=== PATIENT | female | born 1985 | race Caucasian/White ===

== ENCOUNTER 2017-10-28 09:10 | Emergency (ER) | payer BC ==
[2017-10-28 10:18] VITALS: BP 105/62
--- NOTE | 2017-10-28 10:40 | UC ---
Respiratory Complaint HPI - HPI Summary HPI Summary: 32 yo female with sinus congestion/runny nose and post nasal drip x 2 weeks frontal WORTHY no f/v upper teeth and gums sensitive - History of Current Complaint Chief Complaint: UCRespiratory Stated Complaint: SINUSES,ST,FEVER Time Seen by Provider: 10/28/17 10:01 Hx Obtained From: Patient Hx Last Menstrual Period: 10/25/17 Onset/Duration: Gradual Onset, Lasting Weeks Timing: Constant Severity Initially: Moderate Severity Currently: Moderate Pain Intensity: 5 Pain Scale Used: 0-10 Numeric Character: Cough: Nonproductive Associated Signs And Symptoms: Positive: Nasal Congestion, Hoarseness, Sinus Discomfort - Allergies/Home Medications Allergies/Adverse Reactions: Allergies Allergy/AdvReac Type Severity Reaction Status Date / Time No Known Allergies Allergy Verified 10/28/17 10:18 Home Medications: Home Medications [id number] [Tylenol Sinus Congestion 5-325-200 mg] 2 teasp PO PRN 10/28/17 [History] PMH/Surg Hx/FS Hx/Imm Hx Previously Healthy: Yes - Surgical History Surgical History: None - Family History Known Family History: Positive: Hypertension - father Negative: Cardiac Disease, Diabetes, Respiratory Disease - Social History Alcohol Use: Rare Substance Use Type: None Smoking Status (MU): Never Smoked Tobacco Review of Systems Constitutional: Fatigue Skin: Negative Eyes: Negative ENT: Dental Pain, Sore Throat, Ear Ache, Nasal Discharge, Sinus Congestion, Sinus Pain/Tenderness Respiratory: Cough Cardiovascular: Negative Gastrointestinal: Negative Genitourinary: Negative Motor: Negative Neurovascular: Negative Musculoskeletal: Negative Neurological: Headache Psychological: Negative Is Patient Immunocompromised?: No All Other Systems Reviewed And Are Negative: Yes Physical Exam Triage Information Reviewed: Yes Appearance: Well-Appearing, No Pain Distress, Well-Nourished Vital Signs: Initial Vital Signs Temp 97.8 F 10/28/17 10:10 Pulse 103 10/28/17 10:10 Resp 16 10/28/17 10:10 BP 105/62 10/28/17 10:10 Pulse Ox 99 10/28/17 10:10 Eye Exam: Normal Eyes: Positive: Conjunctiva Clear ENT: Positive: Normal ENT inspection, Nasal congestion, Nasal drainage, TMs normal, Hoarse voice, Sinus tenderness, Uvula midline. Negative: Trismus, Muffled voice Neck: Positive: Supple, Nontender, No Lymphadenopathy Respiratory: Positive: Lungs clear, Normal breath sounds, No respiratory distress Cardiovascular: Positive: RRR, No Murmur Musculoskeletal: Positive: ROM Intact, No Edema Neurological: Positive: Alert Psychological Exam: Normal Skin Exam: Normal UC Diagnostic Evaluation - Laboratory O2 Sat by Pulse Oximetry: 99 - normal/not hypoxic Respiratory Course/Dx - Differential Dx/Diagnosis Provider Diagnoses: acute sinusitis Discharge - Discharge Plan Condition: Stable Disposition: HOME Prescriptions: Amoxicillin PO (*) [Amoxicillin 875 MG (*)] 875 mg PO BID #20 tab Patient Education Materials: Sinusitis (ED) Referrals: No Primary Care Phys,NOPCP [Primary Care Provider] - Additional Instructions: recheck in 5 days if not better recheck sooner for worsening symptoms
== END 2017-10-28 11:02 | disposition home or self-care (01) ==
LOC: UCCORT 09:10
DX: J06.9 Acute upper respiratory infection, unspecified (principal)
CPT/HCPCS: 99212; G0463